=== PATIENT | male | born 1960 | race Caucasian/White ===

== ENCOUNTER → 2016-07-28 | Outpatient (CLI) | payer OTHER ==
--- NOTE | 2016-07-28 15:27 | KCIC ---
PROCEDURE MRI right knee without contrast. HISTORY Right knee pain medially after running injury. TECHNIQUE MRI of the right knee was performed without intravenous contrast. FINDINGS The anterior cruciate ligament and posterior cruciate ligament are intact. The medial collateral ligament and lateral collateral ligament complex are intact. There is mild proximal patellar tendinopathy. The extensor mechanism is intact. The patellar retinacula are intact. There is a small free edge defect along the body of the lateral meniscus. The medial meniscus appears intact. There is a small focus of fluid along the superior aspect of the lateral margin of the intermeniscal ligament. This may indicate only joint fluid. There is a moderate partial-thickness cartilage ulcer along the weightbearing portion of the medial femoral condyle measuring 7 millimeters antro posteriorly and 4 millimeters laterally. The lateral compartmental cartilage demonstrates no focal defects. There is an undercutting cartilage fissure along the median ridge of the patella. Cartilage loss is near full thickness along the lateral patellar facet. There is only trace joint fluid. There is no muscular edema. IMPRESSION - Small free edge tear along the body of the lateral meniscus. - A 9 millimeter fluid collection along the superior surface of the lateral aspect of the intermeniscal ligament is likely only joint fluid rather than a parameniscal cyst. Correlate for anterior mechanical symptoms. - Cartilage loss is near full thickness along the lateral patellar facet. It is moderate and partial thickness along the medial femoral condyle. Electronically signed by: Diaz Richardson (Jul 28, 2016 15:25:31)
== END | disposition home or self-care (01) ==
LOC: KCIC MRI 13:29
PROVIDERS: ATTEND General Practice
DX: S83.281A Other tear of lateral meniscus, current injury, right knee, initial encounter (principal); X58.XXXA Exposure to other specified factors, initial encounter; Y93.89 Activity, other specified; Y92.89 Other specified places as the place of occurrence of the external cause; Y99.8 Other external cause status
CPT/HCPCS: 73721